=== PATIENT | male | born 1995 | race Two or more races ===

== ENCOUNTER 2025-01-18 02:25 | Emergency (ER) | payer OTHER ==
[~2025-01-18] VITALS: Ht 175.3 cm; Wt 72.6 kg
[2025-01-18] MEDS ORDERED: LORazepam 0.5 MG TABLET PO STA (03:56)
== END 2025-01-18 04:18 | disposition home or self-care (01) ==
LOC: ER 03:02
DX: F41.8 Other specified anxiety disorders (principal)